=== PATIENT | female | born 1990 | race Caucasian/White ===

== ENCOUNTER 2018-08-19 07:48 | Emergency (ER) | payer OTHER, SELFPAY ==
[2018-08-19 07:50] VITALS: BP 110/57; PULSE 60; RESP 17; TEMP 37; O2SAT 100; BMI 26.9
--- NOTE | 2018-08-19 08:06 | ED.DCSUM_ITS ---
- ER Visit Summary Date of Service: 08/19/18 Chief Complaint: Abdominal pain History of Present Illness: The patient is a 28 F with abdominal pain that started about 12 hours ago. The pain is in the epigastric region and does not radiate. It feels like a sharp pain. Associate with nausea, vomiting, and b loating. The patient had 10 or more episodes of nonbloody emesis. She tried ibuprofen and Pepto-Bismol with no improvement. Nothing seemed to bring this on or make it better. Nothing seemed to make it worse. She never had this before. Denies any history of stomach, liver, gallbladder, pancreas disease. She has a history of appendectomy and x2. Non-smoker. Denies alcohol. No fev ers or jaundice. Physical Examination: Patient is afebrile and hemodynamically stable. Appears uncomfortable but not toxic or in distress. Head and neck unremarkable. No jaundice. Moist mucous membranes. Heart regular rate and rhythm. Lungs clear. Abdomen tender in the epigastric region. No guarding or rebound. Back is nontender. Skin appears normal. Test Results: Laboratory studies, urinalysis pending. Emergency Department Course and Treatment: Patient treated with fluids, morphine, and Zofran while awaiting results. On reevaluation, the patient's pain and symptoms had resolved. Her workup was unremarkable except for a white count of 13.8. I discussed this with the patient. It certainly may be due to an underlying infection, but could also be from stress and inflammation and secondary to vomiting. She had no other findings consistent with sepsis. We discussed further options like imaging, and the patient elected to forego imaging at this point. She would like to go home with medications. I believe this is reasonable. I advised her that her symptoms may worsen or evolve over time. She should return if she has any issues. She was prescribed a course of Pepcid and Zofran. She will follow-up with primary care for recheck. Return right away if she has any new or worsening issues. Treatment Plan: As above Disposition: Discharged Impression: 1. Epigastric pain This note was generated with [employer] dictation software. It may contain incorrect words, spelling, and punctuation that were not noted in review of the chart prior to signing ED Disposition - Plan for ED Patient: Chief Complaint: Abd Pain Instructions: ED Abdominal Pain Unkn Cause Prescriptions: Ondansetron [Zofran Odt] 4 mg PO Q8H PRN PRN #10 tab PRN Reason: Nausea Famotidine [Pepcid] 20 mg PO BID #28 tab Referrals: Renée Rodriguez MD [COURTESY STAFF PHYSICIAN] - 1-2 Days if not improving (if you need a primary care doctor to follow up )
[2018-08-19] MEDS: Ondansetron 4 MG/2 ML Vial IV (08:10)
[2018-08-19] MEDS: Morphine 4 MG/ML Syringe IV (08:10)
[2018-08-19] MEDS: 0.9% Normal Saline 1,000 ML 1000 ML IV (08:10)
[2018-08-19 08:23] LABS: Bacteria 0 SEEN /hpf (None Seen); White Blood Cells 0 SEEN /hpf (0-5)
[2018-08-19 08:29] LABS: Absolute Neutrophil Count 11.6 X10^3/uL (2.0-7.7); Basophil# 0.03 X10^3/uL; Basophil% 0.2 % (0-1); Eosinophil# 0.06 X10^3/uL; Eosinophils% 0.4 % (0-5); Hematocrit 41.8 % (37-47); Hemoglobin 14.1 g/dl (12.0-15.0); Lymphocyte % 9.4 % (19-41); Mean Corp Hgb Conc 33.7 g/gl (32-36); Mean Corpuscular Hgb 31.1 pg (27.0-32.0); Mean Corpuscular Volume 92.3 fL (81-99); Mean Platelet Vol. 10.1 fl (6.2-12.0); Monocyte# 0.78 X10^3/uL; Monocyte% 5.6 % (0-10); Neutrophil # 11.61 X10^3/uL (2.7-7.7); Neutrophil % 84.2 % (47-70); Platelet Count 307 K/mm3 (150-450); RBC Distribution Width CV 13.1 % (11.6-14.6); RBC Distribution Width SD 43.8 fl (35.1-43.9); Red Blood Count 4.53 M/mm3 (4.2-5.4); White Blood Count 13.8 K/mm3 (4.4-11.0)
[2018-08-19 08:32] LABS: POSITIVE COUNT NO; POSITIVE DIFFERENTIAL NO; POSITIVE MORPHOLOGY NO
[2018-08-19 08:37] LABS: Color, Urine Yellow (Yellow); Glucose, Dipstick Normal (Normal); Ketone-Dipstick Negative (Negative); Leukocyte Esterase-Dipstick Negative /ul (Negative); Nitrite-Dipstick Negative (Negative); Occult Blood-Urine 25 /ul (Negative); Protein-Dipstick 15 mg/dl (Negative); Specific Gravity, Urine 1.015 (1.002-1.030); Urine Bilirubin Dipstick Negative (Negative); Urine Clarity Sl. Cloudy (Clear); Urine Urobilinogen Normal (Normal); Urine pH 6.5 (5.0 - 8.0)
[2018-08-19 09:00] LABS: Mucous, Urine 1+ /hpf (<or=2+); Red Blood Cells-Urine 0-5 SEEN /hpf (0-5); Squamous Epithelial Cells - UA 0-5 SEEN /hpf (5-10)
[2018-08-19 09:07] LABS: ALB/GLOB Ratio 0.9 RATIO (0.9-2.4); AST(SGOT) 14 U/L (15-37); Alanine Aminotransfer ALT/SGPT 21 U/L (13-56); Albumin, Serum 3.7 g/dL (3.2-5.0); Alkaline Phosphatase 74 U/L (45-117); Anion Gap 10 (5-15); BUN 10 mg/dL (7-18); BUN/Creat Ratio 14.9 RATIO (10-20); Calcium,Total 8.8 mg/dL (8.5-10.1); Chloride 104 mmol/L (98-107); Creatinine, Serum 0.67 mg/dL (0.55-1.02); EST Glomerular Filtration Rate 112 mL/min (>60); Est Glom Filt Rate - Afr Amer 135 mL/min (>60); Estimated Creatinine Clearance 113.49 ml/min; Globulin 3.9 g/dL (2.2-4.2); Glucose 101 mg/dL (74-106); Lipase 115 U/L (73-393); Potassium 3.9 mmol/L (3.5-5.1); Protein, Total 7.6 g/dL (6.4-8.2); Sodium Level 137 mmol/L (136-145)
[2018-08-19 09:10] LABS: Pregnancy, Serum, hCG Quali. NEGATIVE Negative (0-9 Nonpreg)
--- NOTE | 2018-08-19 09:18 | ED.DEP ---
ED Disposition - Plan for ED Patient: Chief Complaint: Abd Pain Instructions: ED Abdominal Pain Unkn Cause Prescriptions: Ondansetron [Zofran Odt] 4 mg PO Q8H PRN PRN #10 tab PRN Reason: Nausea Famotidine [Pepcid] 20 mg PO BID #28 tab Referrals: Renée Rodriguez MD [COURTESY STAFF PHYSICIAN] - 1-2 Days if not improving (if you need a primary care doctor to follow up )
[2018-08-19 09:34] VITALS: BP 104/57; PULSE 51; RESP 17
--- NOTE | 2018-08-19 09:35 | ED.RN ---
IV DC'ED, CATHETER INTACT, SMALL GAUZE DRESSING PLACED. DISCHARGE INSTRUCTIONS GIVEN TO AND REVIEWED WITH PATIENT, PATIENT DENIES QUESTIONS OR CONCERNS AND VOICES UNDERSTANDING OF DISCHARGE INSTRUCTIONS. PT AMBULATES OUT OF ROOM WITHOUT DIFFICULTY.
== END 2018-08-19 09:35 | disposition home or self-care (01) ==
PROVIDERS: Emergency Provider Emergency Medicine
DX: R10.13 Epigastric pain (principal); R11.2 Nausea with vomiting, unspecified
CPT/HCPCS: 80053; 81001; 83690; 84703; 85025; 96361; 96374; 96375; 99283; J7030; A4216; J2405

== ENCOUNTER 2023-04-09 19:17 | Observation (INO) | payer OTHER, SELFPAY ==
[2023-04-09 19:18] VITALS: BP 122/102; PULSE 85; RESP 20; TEMP 36.3; O2SAT 100; BMI 32.1
--- NOTE | 2023-04-09 19:50 | EDS_ITS ---
HPI History of Present Illness Chief Complaint: Abd Pain Narrative Narrative: Patient presents with abdominal pain for few days, got worse today. She describes cramping pain and its throughout the entire abdomen. She does not have any diarrhea. She has nausea. She had some vaginal bleeding few days ago and she is late for her menstrual cycle however she does have a tubal ligation. She has no fevers or chills. She has no cough or congestion. She has no back pain or tearing sensation. She is denying dysuria. [facility] Medical History (Updated 04/09/23 @ 22:[address] Gary Pacheco MD) delivery delivered Home Medications NK 04/09/23 [History Last Taken Unknown] Allergy/AdvReac Type Severity Reaction Status Date / Time No Known Allergies Allergy Verified 04/09/23 19:26 Surgical History (Updated 04/09/23 @ 19:27 by Renetta Roman) History of appendectomy History of tubal ligation Social History Smoking Status: Never smoker ROS ROS ED ROS Narrative Past medical history: Reviewed Medications: Reviewed Social history: Noncontributory Review of systems: All systems negative except as indicated General: No fever Eyes: No visual changes ENT: No upper airway congestion, normal voice Neck: No neck pain Cardiovascular: No chest pain Respiratory: No shortness of breath or cough Gastrointestinal: As in HPI Genitourinary: No dysuria. Some vaginal bleeding did not stop Musculoskeletal: Denies myalgias no difficulty with ambulation Skin: No rash EXAM Physical Exam Narrative Exam Narrative: Physical exam General: Patient appears uncomfortable Head: Normocephalic, Atraumatic Eyes: Conjunctiva not pale ENT: Moist mucous membranes Neck: Supple, Nontender, No lymphadenopathy Cardiovascular: Regular rate, Regular rhythm Respiratory: No distress, CTA bilaterally Abdomen: Soft, there is tenderness throughout, some guarding but no rebound tenderness. She has pain that is equal in all 4 quadrants. Back: Nontender, Normal Inspection. Negative for: CVA tenderness Extremities: Nontender, No edema Skin: Normal color, No rash Const Vital Signs: 04/09/23 19:18 04/09/23 21:23 04/09/23 22:08 Temperature 97.3 F L 97.7 F L Temperature Source Temporal Temporal Pulse Rate 85 57 L 64 Respiratory Rate 20 H 14 16 Blood Pressure 122/102 H 98/53 L 108/61 Blood Pressure Mean 108 68 76 Blood Pressure Source Monitor Blood Pressure Position Semi-Fowlers Blood Pressure Location Left Arm Pulse Ox 100 96 97 Oxygen Delivery Method Room Air Room Air MDM MDM MDM Narrative Medical decision making narrative: Patient was reevaluated her abdomen did show guarding and now there is rebound and other peritoneal signs. test came back negative thus I was worried about a ectopic specifically ruptured ectopic. Similar to ultrasound which did show an adnexal mass with complex debris. I had talked to from OB who will take the patient to the OR. Currently she is stable. She was typed and screened, multiple evaluations were made. Lab Data Labs: Laboratory Results - last 24 hr 04/09/23 04/09/23 04/09/23 19:36 19:36 20:31 WBC 13.2 H RBC 4.29 Hgb 13.1 Hct 39.0 MCV 90.9 MCH 30.5 MCHC 33.6 RDW Std Deviation 42.7 RDW Coeff of Nancy 13.0 Plt Count 363 MPV 9.6 Immature Gran % (Auto) 0.700 Neut % (Auto) 64.3 Lymph % (Auto) 27.5 [place] % (Auto) 5.4 Eos % (Auto) 1.6 Baso % (Auto) 0.5 Absolute Neuts (auto) 8.5 H Absolute Lymphs (auto) 3.64 Nucleated RBC % 0 Sodium 139 Potassium 3.4 L Chloride 106 Carbon Dioxide 26.0 Anion Gap 7 BUN 11 Creatinine 0.84 Estim Creat Clear Calc 83.80 Est GFR (MDRD) Af Amer 101 Est GFR (MDRD) Non-Af 83 BUN/Creatinine Ratio 13.0 Glucose 102 Calcium 8.8 Total Bilirubin 0.30 AST 16 ALT 23 Alkaline Phosphatase 84 Total Protein 7.1 Albumin 3.4 Globulin 3.7 Albumin/Globulin Ratio 0.9 Lipase 33 HCG, Quant Urine Color Yellow Urine Clarity Clear Urine pH 6.5 Ur Specific [place]ran[place] 1.020 Urine Protein Negative Urine Glucose (UA) Normal Urine Ketones Negative Urine Occult Blood 10 H Urine Nitrite Negative Urine Bilirubin Negative Urine Urobilinogen Normal Ur Leukocyte Esterase Negative Urine RBC 0 SEEN Urine WBC 0 SEEN Ur Squamous Epith Cells 0-5 SEEN Urine Bacteria 0 SEEN Urine Mucus 1+ Urine Test Positive H Blood Type Antibody Screen 04/09/23 04/09/23 21:07 21:07 WBC RBC Hgb Hct MCV MCH MCHC RDW Std Deviation RDW Coeff of Nancy Plt Count MPV Immature Gran % (Auto) Neut % (Auto) Lymph % (Auto) [place] % (Auto) Eos % (Auto) Baso % (Auto) Absolute Neuts (auto) Absolute Lymphs (auto) Nucleated RBC % Sodium Potassium Chloride Carbon Dioxide Anion Gap BUN Creatinine Estim Creat Clear Calc Est GFR (MDRD) Af Amer Est GFR (MDRD) Non-Af BUN/Creatinine Ratio Glucose Calcium Total Bilirubin AST ALT Alkaline Phosphatase Total Protein Albumin Globulin Albumin/Globulin Ratio Lipase HCG, Quant 3477 H Urine Color Urine Clarity Urine pH Ur Specific [place] Urine Protein Urine Glucose (UA) Urine Ketones Urine Occult Blood Urine Nitrite Urine Bilirubin Urine Urobilinogen Ur Leukocyte Esterase Urine RBC Urine WBC Ur Squamous Epith Cells Urine Bacteria Urine Mucus Urine Test Blood Type O POSITIVE Antibody Screen NEGATIVE Radiography Diagnostic Testing: Clinical Impression(s) from Imaging Studies Obstetrics Ultrasound 04/09/23 20:58 IMPRESSION: Findings highly suspicious for right adnexal ectopic with moderate amount of complex free fluid concerning for hemoperitoneum. Possible ectopic rupture. Recommend gynecologic consultation for further management. Small simple appearing 1.9 cm left ovarian cyst. Electronically Signed: Jose Johnson MD at 22:13 EDT , Critical Care Time Critical care time (excluding procedures): 30-74 minutes, Including time spent:, Discussing w/Patient &/or Family/Irrigation Supervisor, Discussing w/Consultants, Arranging Admission or Transfer, Performing Direct Patient Care at Bedside and - ( Critical care time 30 minutes) Discharge Plan Triage Chief Complaint: Abd Pain ED Provider: Gary Pacheco Dx/Rx/DC Orders Clinical Impression: Ruptured ectopic , Abdominal pain Primary Care Provider: Care Physician,No Primary Disposition Disposition: [facility]
[2023-04-09] MEDS: HYDROmorphone 1 MG/ML Syringe IV (19:57)
[2023-04-09] MEDS: Ondansetron 4 MG/2 ML Vial IV (19:57)
[2023-04-09] MEDS: 0.9% Normal Saline 1,000 ML 1000 ML IV (19:57)
[2023-04-09 20:17] LABS: Absolute Lymphocyte Count 3.64 X10^3/uL (0.83-4.51); Absolute Neutrophil Count 8.5 X10^3/uL (2.0-7.7); Basophil# 0.06 X10^3/uL; Basophil% 0.5 % (0-1); Eosinophil# 0.21 X10^3/uL; Eosinophils% 1.6 % (0-5); Hemoglobin 13.1 g/dL (12.0-15.0); Lymphocyte # 3.64 X10^3/ul (0.83-4.51); Lymphocyte % 27.5 % (19-41); Mean Corp Hgb Conc 33.6 g/dL (32-36); Mean Corpuscular Hgb 30.5 pg (27.0-32.0); Mean Corpuscular Volume 90.9 fL (81-99); Mean Platelet Vol. 9.6 fl (6.2-12.0); Monocyte# 0.72 X10^3/uL; Monocyte% 5.4 % (0-10); NRBC Flagged by Analyzer 0 % (0-5); Neutrophil % 64.3 % (47-70); Platelet Count 363 K/mm3 (150-450); RBC Distribution Width SD 42.7 fl (35.1-43.9); Red Blood Count 4.29 M/mm3 (4.2-5.4); White Blood Count 13.2 K/mm3 (4.4-11.0)
[2023-04-09 20:34] LABS: ALB/GLOB Ratio 0.9 RATIO (0.9-2.4); AST(SGOT) 16 U/L (15-37); Alanine Aminotransfer ALT/SGPT 23 U/L (13-56); Albumin, Serum 3.4 g/dL (3.2-5.0); Alkaline Phosphatase 84 U/L (45-117); Anion Gap 7 (5-15); BUN 11 mg/dL (7-18); Calcium,Total 8.8 mg/dL (8.5-10.1); Chloride 106 mmol/L (98-107); Creatinine, Serum 0.84 mg/dL (0.55-1.02); EST Glomerular Filtration Rate 83 mL/min (>60); Est Glom Filt Rate - Afr Amer 101 mL/min (>60); Globulin 3.7 g/dL (2.2-4.2); Glucose 102 mg/dL (74-106); Lipase 33 U/L (13-75); Potassium 3.4 mmol/L (3.5-5.1); Protein, Total 7.1 g/dL (6.4-8.2); Sodium Level 139 mmol/L (136-145)
[2023-04-09 20:36] LABS: Bacteria 0 SEEN /hpf (None Seen); Red Blood Cells-Urine 0 SEEN /hpf (0-5); White Blood Cells 0 SEEN /hpf (0-5)
[2023-04-09 20:43] LABS: Color, Urine Yellow (Yellow); Glucose, Dipstick Normal (Normal); Ketone-Dipstick Negative (Negative); Leukocyte Esterase-Dipstick Negative /ul (Negative); Nitrite-Dipstick Negative (Negative); Occult Blood-Urine 10 /ul (Negative); Protein-Dipstick Negative (Negative); Urine Bilirubin Dipstick Negative (Negative); Urine Clarity Clear (Clear); Urine Urobilinogen Normal (Normal); Urine pH 6.5 (5.0 - 8.0)
[2023-04-09 20:49] LABS: Mucous, Urine 1+ /hpf (<or=2+); Squamous Epithelial Cells - UA 0-5 SEEN /hpf (5-10)
[2023-04-09 20:50] LABS: Internal QC Validated? YES +Cl - CLEAR BKGD
[2023-04-09 20:54] LABS: Pregnancy, Urine Positive Negative
--- NOTE | 2023-04-09 20:58 | US_ITS ---
We are attempting to reach an attending provider to discuss findings. An addendum with communication details will be sent when the communication is complete. INDICATION: ectopic - severe pelvic pain with spotting - Hx tubal EXAMINATION: US OB less than 14 Weeks with Transvaginal TECHNIQUE: Transabdominal and transvaginal (for optimal evaluation of the adnexa) pelvic ultrasound was performed. Grayscale, spectral waveform, and color flow Doppler evaluation of the adnexa. COMPARISON: None. FINDINGS: Evaluation somewhat limited secondary to patient discomfort and shadowing artifact. Uterus measures 10.4 x 5.6 x 7.6 cm. No intrauterine or uterine mass demonstrated. Thickened endometrial complex measures 19 mm diameter. Closed cervix. scar noted. Moderate amount of free fluid within pelvis containing echogenic debris. Right adnexal mass measures approximately 5.8 x 4.1 x 5 cm transvaginally. Mass contains ovoid central hyperechoic area measuring 4.8 x 2.9 x 3.1 cm. Adjacent right ovary not well defined, demonstrated transabdominally measuring 3.2 x 1.4 x 2.3 cm. Poorly visualized but present right ovarian color Doppler flow and Doppler waveforms demonstrated. Transvaginally, left ovary measures 3.6 x 2.3 x 3 cm with simple appearing anechoic 1.9 x 1.7 x 1.9 cm cyst. Normal left ovarian color Doppler flow and spectral Doppler waveforms demonstrated. US/Transvaginal w/Preg US IMPRESSION: Findings highly suspicious for right adnexal ectopic with moderate amount of complex free fluid concerning for hemoperitoneum. Possible ectopic rupture. Recommend gynecologic consultation for further management. Small simple appearing 1.9 cm left ovarian cyst. Electronically Signed: Jose Johnson MD at 22:13 EDT ,
[2023-04-09 21:23] VITALS: BP 98/53; PULSE 57; RESP 14; O2SAT 96
[2023-04-09 21:52] LABS: hCG Titer Quant., Serum 3477 mIU/mL (1-3)
[2023-04-09 22:08] VITALS: BP 108/61; PULSE 64; RESP 16; TEMP 36.5; O2SAT 97; BMI 32.1
[2023-04-09 22:21] VITALS: BP 109/63; PULSE 66; PULSE 77; RESP 15; RESP 16; TEMP 36.5; O2SAT 98
[2023-04-09 22:23] LABS: Hematocrit 33.7 % (37-47); Hemoglobin 11.3 g/dL (12.0-15.0)
--- NOTE | 2023-04-09 22:34 | PCM.HP.OB ---
HPI - General HPI Narrative TERESA WEBSTER, is a 32 y/o @ 6 weeks 2 days since her last menses who presents to [facility] ER with severe abdominal pain. Her urine test was negative and she has a history of tubal ligation after her last section (Dr. Ríos). She has some spotting. No vomiting, shortness of breath, or chest pain. Her quant level is 300 and ultrasound shows the following: Uterus measures 10.4 x 5.6 x 7.6 cm. No intrauterine or uterine mass demonstrated. Thickened endometrial complex measures 19 mm diameter. Closed cervix. scar noted. Moderate amount of free fluid within pelvis containing echogenic debris. Right adnexal mass measures approximately 5.8 x 4.1 x 5 cm transvaginally. Mass contains ovoid central hyperechoic area measuring 4.8 x 2.9 x 3.1 cm. Adjacent right ovary not well defined, demonstrated transabdominally measuring 3.2 x 1.4 x 2.3 cm. Poorly visualized but present right ovarian color Doppler flow and Doppler waveforms demonstrated. Transvaginally, left ovary measures 3.6 x 2.3 x 3 cm with simple appearing anechoic 1.9 x 1.7 x 1.9 cm cyst. Normal left ovarian color Doppler flow and spectral Doppler waveforms demonstrated. The patient was given options for treatment of a likely ectopic including surgical vs medical therapy and has decided to proceed with surgery. [facility] Medical History (Updated 04/09/23 @ 22:[address] Karin Noel, DO) delivery delivered Home Medications NK 04/09/23 [History Last Taken Unknown] Allergy/AdvReac Type Severity Reaction Status Date / Time No Known Allergies Allergy Verified 04/09/23 19:26 Surgical History (Updated 04/09/23 @ 19:27 by Renetta Roman) History of appendectomy History of tubal ligation Social History Smoking Status: Never smoker ROS Constitutional Constitutional: Denies change in weight, fatigue, fever(s), headache(s), poor appetite or weakness Eyes Eyes: Denies blurry vision, change in vision, seeing flashes or spots in vision ENT HEENT: Denies dizziness, headache(s), loss taste/smell or sore throat Cardiovascular Cardiovascular: Denies chest pain, dizziness, dyspnea, irregular heart rhythm, leg edema, palpitations, rapid heart rate or vomiting Respiratory/Chest Respiratory/Chest: Denies chest tightness, cough, dyspnea or breast pain Gastrointestinal Gastrointestinal: Denies abdominal pain, anorexia, constipation, cramping, diarrhea, hemorrhoids, vomiting or weight changes Genitourinary Genitourinary: Denies dysuria, flank pain, genital lesions, genital pain, urinary frequency or urinary urgency Musculoskeletal Musculoskeletal: Denies back pain, difficulty walking, joint pain, limited range of motion, muscle cramps or numbness Integumentary Integumentary: Denies lesions or unusual bruising Neurologic Neurologic: Denies abnormal movements, abnormal speech, dizziness, numbness, seizure-like activity or syncope Psychiatric Psychiatric: Denies anxiety, behavioral changes, change in appetite, change in libido, cognitive impairment, confusion, depression, difficulty concentrating, hallucinations or suicidal thoughts Endocrine Endocrinology: Denies excessive sweating, polydipsia or polyuria Hematologic/Lymphatic Hematologic/Lymphatic: Denies easy bleeding, easy bruising or lymphadenopathy Vital Signs Vital Signs Vital Signs: 04/09/23 19:18 04/09/23 21:23 04/09/23 22:08 Temperature 97.3 F L 97.7 F L Temperature Source Temporal Temporal Pulse Rate 85 57 L 64 Respiratory Rate 20 H 14 16 Blood Pressure 122/102 H 98/53 L 108/61 Blood Pressure Mean 108 68 76 Blood Pressure Source Monitor Blood Pressure Position Semi-Fowlers Blood Pressure Location Left Arm Pulse Ox 100 96 97 Oxygen Delivery Method Room Air Room Air 04/09/23 22:21 04/09/23 22:21 Temperature 97.7 F L Temperature Source Temporal Pulse Rate 66 77 Respiratory Rate 15 16 Blood Pressure 109/63 109/63 Blood Pressure Mean 78 78 Blood Pressure Source Blood Pressure Position Blood Pressure Location Pulse Ox 98 98 Oxygen Delivery Method Room Air Room Air Weight Weight: 187 lb 4.8 oz Body Mass Index (BMI) 32.1 Physical Exam Const alert, oriented x3, no apparent distress and healthy appearing General Appearance: cooperative; Negative for anxious HEENT normocephalic Face and Sinus: normal facial exam Eyes EOMs intact bilaterally and no scleral icterus General Eye: normal appearance of both eyes Neck full ROM and supple Resp normal respiratory effort Effort and Inspection: able to speak in complete sentences Cardio regular rate GI soft to palpation GI Narrative: guarding present. + tenderness to mid and right lower quadrants Extremity normal to inspection, full ROM and no clubbing, cyanosis or edema General Extremity: Negative for calf tenderness or edema Skin Lesions: no lesions Rashes: no rashes Psych mental status grossly normal Labs Labs Labs: Blood Type O POSITIVE Antibody Screen NEGATIVE Hct 33.7 % (37-47) L Hgb 11.3 g/dL (12.0-15.0) L Obstetrics US Assessment & Plan (1) Ectopic : (2) Abdominal pain: PLAN: Plan suspect possible rupture due to some free fluid in the pelvis hg stable at 13 when last checked upon arrival. rpt is pending. bp was 90's/50's, now 109/63 After discussing the patient's diagnosis and treatment plan options, patient wishes to proceed with surgical management. I have discussed with the patient the risks, benefits, and alternatives of the procedure which include but are not limited to risks of anesthesia, bleeding, infection, possible damage to bowel, bladder, or surrounding vasculature which could lead to additional surgery to evaluate any complications. Patient agrees to procedure and wishes to proceed with a laparoscopic removal of ectopic Charges/Coding Visit Charges Office Visits / Consults: 28314 ED Visit; High/Urgent Severity
--- NOTE | 2023-04-09 22:39 | DCINST_ITS ---
Discharge Instructions Diet Discharge Diet: No restrictions Activity Discharge Activity: Return to Normal Activity, May Not Drive (for two weeks or while taking narcotic pain medications.), May Shower and May Take a Tub Bath (in 7 days) May resume sexual activity in: 1 week Weight Bearing Status: Full weight bearing Dressing / Incision Call your doctor if you observe: Using more than 1 pad per hour, Shortness of breath, Chest pain and Uncontrolled pain Suture Line Care: Avoid Pulling/Pushing and Avoid Pinching/Bending Remove Dressing in: 1 week (if present) Cleanse incision/area with: Soap & Water and Keep Dressing Clean & Dry Follow Up Care Please Follow Up With: Karin Noel DO When: Call to make an appointment with your doctor for a follow up incision check in 1-2 weeks. Test Results: Test results from this visit will be discussed in further detail at your follow- up appointment, if applicable. Discharge Plan Admission Primary Reason for Your Visit: laparoscopic removal of ectopic Attending Provider: Karin Noel Primary Care Provider: Care Physician,Sherri Primary Discharge Orders/Prescriptions Prescriptions: New hydrocodone-acetaminophen 5-325 mg tablet 1 tab PO Q4H PRN (Reason: pain) 3 Days Qty: 18 0RF naproxen 500 mg tablet 500 mg PO BID PRN (Reason: pain) Qty: 20 0RF Referrals / Follow Up: Care Physician,No Primary [Primary Care Provider] - Disposition Disposition (needs filled in before D/C Order can be placed): Home, Self Care
--- NOTE | 2023-04-09 22:47 | OP.PCM_ITS ---
Report of Operation Date of Procedure: 04/09/23 Pre-Operative Diagnosis: right ectopic Post-Operative Diagnosis: right ectopic Surgery/Procedure Performed:: laparoscopic removal of right ectopic Surgeon: Karin Noel Type of Anesthesia: General Description of Procedure: Patient was taken in the operating room and was placed under general anesthesia was prepped and draped in normal sterile fashion in the dorsal lithotomy position. Bladder was drained of clear urine and SCDs were on preoperatively. Uterus was sounded and a uterine manipulator was placed after dilating. Attention was then paid to the abdominal portion of the procedure and the umbilicus was elevated and injected with Marcaine and after a 5 mm incision was made and a 5 mm trocar was inserted into the abdomen under direct visualization using the laparoscope. Abdomen was insufflated with CO2 gas and a 5 mm optical trocar was placed under direct visualization. A left lower quadrant 5 mm port and a mini grasper suprapubically were placed under direct visualization. Uterus was well visualized and bilateral fallopian tubes identified and [] Excellent hemostasis was noted. Fallopian tubes were removed through the lower port sites without complication. Liver and upper abdomen were visualized notably within normal limits and no other gross abnormalities were seen in the a bdomen. All instruments removed from the abdomen after gas was desufflated. Port sites were closed with 3-0 Monocryl Steri's and op sites were applied. All instruments removed from the vagina and patient was awoken and taken recovery in stable condition. Admit VTE Documentation VTE Present on Admission: No VTE Mechan Device Prophylaxis: SCD's VTE Pharm Prophylaxis ordered?: No Multi Select Codes Urinary/Genital Urinary/Genital CPT Codes: 75556 Treat ectopic lapro w/ salpingectomy
[2023-04-09 23:09] VITALS: BP 90/60; PULSE 71
--- NOTE | 2023-04-09 23:15 | FAL_PTH ---
PATIENT: TERESA WEBSTER LOC: [facility]3 U#:[id number] AGE/SX: 32/F [place] [facility] [place]: Dr. Karin Noel DO : 1990 BED: 1 DIS: 04/10/2023 SPEC #: [id number] RECD: 04/10/23 12:11 STATUS: MOLLY UBALDO #: [id number] ALHAJI: 04/09/23 23:[address]: Karin Noel DEPT: SURGICAL PATHOLOGY RECD BY: Anna Schultz ENTERED: 04/10/23 12:32 SP TYPE: ECTOPIC OTHR DR: Sherri Primary Care Phys Tissues: ECTOPIC PREG Procedures: Surgery Specimen Level IV HEADER OPERATION: Laparoscopic removal ectopic , left salpingectomy PRE-OP DIAGNOSIS: Left ectopic TISSUE SUBMITTED: Left fallopian tube and ectopic MICROSCOPIC DIAGNOSIS Left fallopian tube and ectopic , salpingectomy: Fallopian tube with decidua and immature chorionic villi (ectopic ). Focal endometriosis. TYRONE:mckinley 04/11/2023 COMMENT Focal dystrophic calcification is also noted. MICROSCOPIC DESCRIPTION Slides are reviewed. GROSS DESCRIPTION Received in fixative is one container labeled with the patient's name and designated left fallopian tube and ectopic. The specimen consists of a fallopian tube measuring 6.0 cm in length and up to 1.8 cm in diameter. The fimbrial end is identified. The left fallopian tube shows central area of rupture covered with blood clot. tissue is not identified. Sections reveal the lumen containing blood clot. tissue is not identified. Dial Buffer sections are submitted in four cassettes. 80% of the specimen is submitted. Cassette 4 contains the fimbrial end. / TYRONE:mckinley 04/10/2023 TC:5 CPT: 11571
[2023-04-09] MEDS: Bupivacaine 0.25% 30 ML Vial (23:47)
[2023-04-10] VITALS (10 sets, daily range): BP systolic 97–117; BP diastolic 53–67; PULSE 62–112; RESP 14–20; TEMP 36.4–37.1; O2SAT 97–100; BMI 33.7
[2023-04-10] MEDS: Ketorolac 30 MG/ML Syringe IV (00:29)
[2023-04-10] MEDS: Lactated Ringers 1,000 ML 100 ML IV (01:53)
[2023-04-10 06:26] LABS: Hematocrit 29.7 % (37-47); Hemoglobin 9.7 g/dL (12.0-15.0); Mean Corp Hgb Conc 32.7 g/dL (32-36); Mean Corpuscular Hgb 30.6 pg (27.0-32.0); Mean Corpuscular Volume 93.7 fL (81-99); Mean Platelet Vol. 9.7 fl (6.2-12.0); Platelet Count 291 K/mm3 (150-450); RBC Distribution Width CV 13.2 % (11.6-14.6); RBC Distribution Width SD 45.8 fl (35.1-43.9); Red Blood Count 3.17 M/mm3 (4.2-5.4); White Blood Count 13.7 K/mm3 (4.4-11.0)
--- NOTE | 2023-04-10 10:27 | PCM.PN.OB ---
Subjective Subjective Patient is laying in bed comfortably without complaints. She states that she slept on an off during the night. States feels better than she did yesterday. Has not tried breakfast yet. Objective Data Objective Data Vital Signs: Vital Signs Temp Pulse Resp BP Pulse Ox O2 Del Method 98.6 F 72 14 117/57 L 98 Room Air 04/10/23 08:23 04/10/23 08:23 04/10/23 08:23 04/10/23 08:23 04/10/23 08:23 04/10/23 08:23 Oxygen Delivery Method Room Air Weight: 196 lb 13.965 oz Body Mass Index (BMI) 33.7 Intake & Output: Intake and Output for Last 24 Hours 04/08/23 04/09/23 04/10/23 23:59 23:59 23:59 Intake Total 1000 / 1000 800 / 800 Output Total 100 / 100 Balance 900 / 900 800 / 800 Lab / Micro Data Result Diagrams: 04/10/23 05:45 04/09/23 19:36 Labs: Laboratory Results - last 24 hr 04/09/23 19:36: WBC 13.2 H, RBC 4.29, Hgb 13.1, Hct 39.0, MCV 90.9, MCH 30.5, MCHC 33.6, RDW Std Deviation 42.7, RDW Coeff of Nancy 13.0, Plt Count 363, MPV 9.6, Immature Gran % (Auto) 0.700, Neut % (Auto) 64.3, Lymph % (Auto) 27.5, [place] % (Auto) 5.4, Eos % (Auto) 1.6, Baso % (Auto) 0.5, Absolute Neuts (auto) 8.5 H, Absolute Lymphs (auto) 3.64, Nucleated RBC % 0 04/09/23 19:36: Sodium 139, Potassium 3.4 L, Chloride 106, Carbon Dioxide 26.0, Anion Gap 7, BUN 11, Creatinine 0.84, Estim Creat Clear Calc 83.80, Est GFR (MDRD) Af Amer 101, Est GFR (MDRD) Non-Af 83, BUN/Creatinine Ratio 13.0, Glucose 102, Calcium 8.8, Total Bilirubin 0.30, AST 16, ALT 23, Alkaline Phosphatase 84, Total Protein 7.1, Albumin 3.4, Globulin 3.7, Albumin/Globulin Ratio 0.9, Lipase 33 04/09/23 20:31: Urine Color Yellow, Urine Clarity Clear, Urine pH 6.5, Ur Specific [place] 1.020, Urine Protein Negative, Urine Glucose (UA) Normal, Urine Ketones Negative, Urine Occult Blood 10 H, Urine Nitrite Negative, Urine Bilirubin Negative, Urine Urobilinogen Normal, Ur Leukocyte Esterase Negative, Urine RBC 0 SEEN, Urine WBC 0 SEEN, Ur Squamous Epith Cells 0-5 SEEN, Urine Bacteria 0 SEEN, Urine Mucus 1+, Urine Test Positive H 04/09/23 21:07: HCG, Quant [id number] H 04/09/23 21:07: Blood Type O POSITIVE, Antibody Screen NEGATIVE 04/09/23 22:15: Hgb 11.3 L, Hct 33.7 L 04/10/23 05:45: WBC 13.7 H, RBC 3.17 L, Hgb 9.7 L, Hct 29.7 L, MCV 93.7, MCH 30.6, MCHC 32.7, RDW Std Deviation 45.8 H, RDW Coeff of Nancy 13.2, Plt Count 291, MPV 9.7 Radiography Diagnostic Testing: Radiology Impression Obstetrics Ultrasound 04/09/23 20:58 IMPRESSION: Findings highly suspicious for right adnexal ectopic with moderate amount of complex free fluid concerning for hemoperitoneum. Possible ectopic rupture. Recommend gynecologic consultation for further management. Small simple appearing 1.9 cm left ovarian cyst. Electronically Signed: Jose Johnson MD at 22:13 EDT , ADDENDUM: 04/09/232 IMPRESSION: Findings highly suspicious for right adnexal ectopic with moderate amount of complex free fluid concerning for hemoperitoneum. Possible ectopic rupture. Recommend gynecologic consultation for further management. Small simple appearing 1.9 cm left ovarian cyst. N.B. : The above Results were Read Back by Jose Johnson MD to Gary Pacheco MD, and understanding confirmed on 04/09/2023 22:15:22 (ET). Electronically Signed: Jose Johnson MD at 22:13 EDT , ROS Constitutional Constitutional: Reports systems reviewed and no addt'l complaints, except as documented Cardiovascular Cardiovascular: Denies chest pain, dizziness, dyspnea or irregular heart rhythm Respiratory/Chest Respiratory/Chest: Denies cough, pain on inspiration or shortness of breath at rest Gastrointestinal Gastrointestinal: Denies abdominal pain, nausea or vomiting Genitourinary Genitourinary: Denies burning urination Musculoskeletal Musculoskeletal: Denies muscle cramps, muscle spasms or muscle weakness Neurologic Neurologic: Denies confusion, dizziness, headache(s) or lack of coordination Psychiatric Psychiatric: Denies anxiety, behavioral changes or depression Physical Exam HEENT normocephalic Resp normal respiratory effort and normal air movement GI soft to palpation, non-tender and non-distended Rectal Exam: other Other Details: Incision is clean, dry, and intact no CVA tenderness Extremity normal to inspection General Extremity: edema bilateral (trace ) Assessment & Plan (1) Ruptured ectopic : PLAN: Plan patient is s/p left salpingetomy POD 1 1. routine ERAS protocol postop care- increase ambulation, encourage oral intake and oral control of pain. scds for dvt prophylaxis. plan for venofer infusion, stop IV fluids, encourage regular diet. after all of this and patient feels stable will discharge to home.
--- NOTE | 2023-04-10 12:32 | CASEMGMT ---
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 MARQUEZ Vigil
--- NOTE | 2023-04-10 13:58 | PHA.DC.MC ---
Pharmacy Service has performed discharge medication reconciliation and counseling for this patient. 1. NAPROXEN 500MG PO BID PRN PAIN 2. NORCO 5/325MG 1T PO Q4H PRN PAIN The patient's discharge medication list was reviewed for discrepancies and discrepancies were resolved. Home Medications hydrocodone-acetaminophen 5-325mg 5mg-325mg 1 tab PO Q4H PRN pain 3 days #18 tabs 04/09/23 naproxen 500 mg tablet 500 mg PO BID PRN pain #20 tabs 04/09/23 The patient was counseled on the following discharge medications and changes in medications for homegoing were reviewed. The Reason for Use, instructions for use, and potential side effects were reviewed for all new medications. The patient's questions regarding all of their medications were answered. The patient was able to verbally demonstrate an understanding of their discharge medications. Patient counseled by corporate director of [place].
== END 2023-04-10 14:41 | disposition home or self-care (01) ==
LOC: ED 20:41 → AC 22:11 → ED 23:00 → ACINP 23:01 → MS3 04-10 08:39
PROVIDERS: Admitting Provider Obstetrics & Gynecology; Emergency Provider Emergency Medicine; Visit Provider Obstetrics & Gynecology
PROC: 10T24ZZ Resection of Products of Conception, Ectopic, Percutaneous Endoscopic Approach (ICD-10-PCS; CPT 59150; principal; 2023-04-09 23:00)
DX: O00.90 Unspecified ectopic pregnancy without intrauterine pregnancy (principal)
CPT/HCPCS: 59151; 00840; 36415; 76817; 80053; 81001; 81025; 83690; 84702; 85014; 85018; 85025; 85027; 86850; 86900; 86901; 88305; 96361; 96365; 96366; 96375; 99221; 99284; J7030; J7050; J7120; A4216; G0378; J2405; J2916

== ENCOUNTER → 2023-05-25 | Outpatient (CLI) | payer OTHER, SELFPAY ==
--- NOTE | 2023-05-25 12:00 | RAD_ITS ---
STUDY: HYSTEROSALPINGOGRAM. REASON FOR EXAM: Female, 32 years old. Infertility FLUOROSCOPY TIME (if supplied): ( 26 seconds ) minutes/seconds. 13.3 mGy. 2 images were submitted. TECHNIQUE: A hysterosalpingogram was performed by the straight cutter. Imaging was provided. COMPARISON: None. FINDINGS: The uterus is unremarkable. There is patency of the right fallopian tube. There is filling of the proximal portion of the left fallopian tube. RAD/Salpingogram IMPRESSION: Visualization of the right fallopian tube. Partial visualization of the left fallopian tube. The uterus is unremarkable. Electronically Signed: Patrick Brooks MD at 12:46 EDT ,
--- NOTE | 2023-05-25 12:26 | PCM.OPRPT ---
Problems Associated Problem List Diagnoses (1) Ruptured left tubal ectopic causing hemoperitoneum: (2) History of tubal ligation: Report of Operation Pre-Operative Diagnosis: history of ruptured ectopic on the left and bilateral salpingectomy Post-Operative Diagnosis: history of ruptured ectopic on the left and bilateral salpingectomy Surgery/Procedure Performed:: hysterosalpingogram Description of Surgical Findings:: Findings: right tubal patency and normal uterine cavity Surgeon: Karin Noel continuous improvement black belt: None Type of Anesthesia: None Estimated Blood Loss (mL): 0 Description of Procedure: Operative details: Patient was taken to the x-ray room and was placed on the x-ray table and was in the dorsal lithotomy position. Speculum was placed in the vagina and the cervix prepped with Betadine and the HSG catheter was easily introduced into the uterus and speculum removed. Radiologist was brought in and while pushing radiopaque dye into the uterus via the HSG catheter the radiologist took multiple images and views and confirmed right tubal patency with some minimal flow from left cornua also seen. No gross uterine filling defects or abnormalities were seen. All instruments removed from the vagina and the uterus without complication. Patient tolerated the procedure well. Complications none Multi Select Codes Urinary/Genital Urinary/Genital CPT Codes: 34596 HSG/SIS
== END | disposition home or self-care (01) ==
LOC: RAD 11:53
PROVIDERS: Referring Provider Obstetrics & Gynecology; Visit Provider Obstetrics & Gynecology
DX: Z31.9 Encounter for procreative management, unspecified (principal)
CPT/HCPCS: 58340; 74740